=== PATIENT | female | born 1960 | race Caucasian/White ===

== ENCOUNTER 2022-08-27 01:00 | Day surgery (SDC) | payer BC, SELFPAY ==
[2022-08-10 11:04] VITALS: BMI 28.0
--- NOTE | 2022-08-24 12:23 | PM.HPGS ---
History of Present Illness History of Present Illness Consent: Risks, benefits, and alternatives have been discussed and questions answered. Patient agrees to proceed with procedure. Chief complaint: hx of colon polyps Narrative: Monalisa Healy is a 61 year old female With history of colon polyps. Review of Systems Review of Systems: All systems reviewed & are unremarkable except as noted in HPI and below PMFSH Past Medical History Medical History Atopic dermatitis Chronic back pain History of nephrolithotomy with removal of calculi Surgical History Surgical History H/O breast biopsy History of tonsillectomy and adenoidectomy History of tubal ligation S/P ureteral stent placement Family History Family History Other Family history of hypothyroidism Family history of malignant neoplasm of breast in first degree relative Social History Social History Smoking packs per day: 2 Smoking cigarettes per day: 40.0 Years smoked: 15 Smoking pack-years: 30.00 Smoking status: Former smoker Tobacco type: cigarettes Second hand tobacco smoke exposure: No Smoking end date: 11/04/85 Alcohol intake: current Drinks per week: 1 Substance use: never Substance use type: does not use Living arrangements: other Gender identity (if verbalized by the patient): Female Meds Home Medications and Allergies Home Medications Medication Instructions Recorded Confirmed Type cholecalciferol (vitamin D3) 50 50 mcg PO DAILY 11/28/20 08/27/22 History mcg (2,000 unit) capsule ibuprofen 200 mg tablet 800 mg PO BID PRN Pain 07/31/21 08/27/22 History lisinopril 20 0.5 tablet PO DAILY #90 tabs 11/06/21 08/27/22 Rx mg-hydrochlorothiazide 12.5 mg tablet levothyroxine 50 mcg tablet 50 mcg PO DAILY #90 tabs 12/25/21 08/27/22 Rx simvastatin 20 mg tablet 20 mg PO DAILY #90 tabs 02/01/22 08/27/22 Rx orphenadrine citrate 100 mg 100 mg PO Q12H #60 tabs 06/18/22 08/27/22 Rx tablet,extended release aspirin 81 mg tablet 81 mg PO DAILY 08/10/22 08/27/22 History cyanocobalamin (vitamin B-12) 500 500 mcg PO DAILY 08/10/22 08/27/22 History mcg tablet (Vitamin B-12) Allergies Allergy/AdvReac Type Severity Reaction Status Date / Time No Known Allergies Allergy Verified 08/27/22 06:22 Exam Const: General: alert Orientation/consciousness: patient oriented x3 Resp: Auscultation: clear to auscultation bilaterally Cardio: Rhythm: regular rhythm GI: GI Palp: Yes Soft to palpation and No Tenderness to palpation present (GI) Neuro: General: patient oriented x3 Assessment and Plan Assessment and plan (1) Colon cancer screening: Code(s): Z12.11 - Encounter for screening for malignant neoplasm of colon Status: Acute Assessment and Plan: Colonoscopy with possible biopsy or polypectomy or cautery or injection of substances.
[2022-08-27 06:23] VITALS: BP 141/83; PULSE 88; RESP 18; TEMP 36.4; O2SAT 100; BMI 27.3
[2022-08-27] MEDS: LACTATED RINGERS 1,000 ML 150 ML IV CONT (06:34)
--- NOTE | 2022-08-27 07:23 | WPDANESEPPF ---
Anes - Initial Pre Proc Eval Procedure: Operation Date: 08/27/22 07:30 Proposed Procedures p Screening Colonoscopy - Mian Florentino MD Date/Time: 08/27/22 07:23 Surgeon: Mian Florentino MD Pre Op Diagnosis: hx of colon polyps Patient Data Age: 61 Gender: F Height: 1.68 m Weight: 77 kg Last Vital Signs Temp 97.5 F L 08/27/22 06:23 Pulse 88 08/27/22 06:23 Resp 18 08/27/22 06:23 BP 141/83 H 08/27/22 06:23 Pulse Ox 100 08/27/22 06:23 O2 Del Method Room Air 08/27/22 06:23 Allergies Allergy/AdvReac Type Severity Reaction Status Date / Time No Known Allergies Allergy Verified 08/27/22 06:22 Home Medications Medication Instructions Recorded Confirmed Type cholecalciferol (vitamin D3) 50 50 mcg PO DAILY 11/28/20 08/27/22 History mcg (2,000 unit) capsule ibuprofen 200 mg tablet 800 mg PO BID PRN Pain 07/31/21 08/27/22 History lisinopril 20 0.5 tablet PO DAILY #90 tabs 11/06/21 08/27/22 Rx mg-hydrochlorothiazide 12.5 mg tablet levothyroxine 50 mcg tablet 50 mcg PO DAILY #90 tabs 12/25/21 08/27/22 Rx simvastatin 20 mg tablet 20 mg PO DAILY #90 tabs 02/01/22 08/27/22 Rx orphenadrine citrate 100 mg 100 mg PO Q12H #60 tabs 06/18/22 08/27/22 Rx tablet,extended release aspirin 81 mg tablet 81 mg PO DAILY 08/10/22 08/27/22 History cyanocobalamin (vitamin B-12) 500 500 mcg PO DAILY 08/10/22 08/27/22 History mcg tablet (Vitamin B-12) Patient hx anesthesia problems: none Family hx anesthesia problems: none Results Review: All pre-operative results and documents have been reviewed as part of the pre-operative evaluation. [facility] Past Medical History Medical History Atopic dermatitis Chronic back pain History of nephrolithotomy with removal of calculi Surgical History Surgical History H/O breast biopsy History of tonsillectomy and adenoidectomy History of tubal ligation S/P ureteral stent placement Family History Family History Other Family history of hypothyroidism Family history of malignant neoplasm of breast in first degree relative Social History Social History Smoking packs per day: 2 Smoking cigarettes per day: 40.0 Years smoked: 15 Smoking pack-years: 30.00 Smoking status: Former smoker Tobacco type: cigarettes Second hand tobacco smoke exposure: No Smoking end date: 11/04/85 Alcohol intake: current Drinks per week: 1 Substance use: never Substance use type: does not use Living arrangements: other Gender identity (if verbalized by the patient): Female Anes - Eval Final PreProcedure Day of Procedure 08/27/22 07:23 Patient weight: obese Heart: regular rate and rhythm Lungs: clear to auscultation Airway: Mallampati scale class II Neurological: alert and oriented Last oral intake: >/= 8 hours ASA classification: III Emergent: no Anesthetic plan: proceed Anesthesia type and monitoring: general GIVS and standard monitoring Results Review: All pre-operative results and documents have been reviewed as part of the pre-operative evaluation. Informed Consent: The patient's anesthetic plan and its attendant risks and benefits were discussed with the patient/family/POA. Questions were solicited and answers provided to the satisfaction of the patient/family/POA.
[2022-08-27 07:48] VITALS: BP 120/66; PULSE 71; RESP 18; O2SAT 98
[2022-08-27 07:58] VITALS: BP 120/70; PULSE 66; RESP 18; O2SAT 100
[2022-08-27 08:08] VITALS: BP 132/76; PULSE 60; RESP 16; O2SAT 97
== END 2022-08-27 08:17 | disposition home or self-care (01) ==
PROVIDERS: PCP Family Medicine; Visit Provider Internal Medicine Gastroenterology
PROC: 0DJD8ZZ Inspection of Lower Intestinal Tract, Via Natural or Artificial Opening Endoscopic (ICD-10-PCS; CPT 45378; principal; 2022-08-27 07:30)
DX: Z12.11 Encounter for screening for malignant neoplasm of colon (principal); K57.30 Diverticulosis of large intestine without perforation or abscess without bleeding; Z86.010 Personal history of colon polyps; Z87.891 Personal history of nicotine dependence
CPT/HCPCS: 45378; J2704; J7120

== ENCOUNTER 2023-01-28 12:12 | Outpatient (CLI) | payer BC, SELFPAY ==
--- NOTE | 2023-01-28 12:31 | ECG_ITS ---
Measurements Intervals [place] Rate: 68 P: 55 PA: 170 QRS: 10 QRSD: 85 T: 15 QT: 387 QTc: 412 Interpretive Statements SINUS RHYTHM EARLY PRECORDIAL R/S TRANSITION ST ABNORMALITY IN ANTEROLATERAL LEADS- CONSIDER ISCHEMIA ABNORMAL ECG NO PREVIOUS ECG AVAILABLE FOR COMPARISON Electronically Signed On 01-28-2023 12:57:21 CDT by Bijan Wrothy D.O.
== END 2023-01-28 12:13 | disposition home or self-care (01) ==
PROVIDERS: PCP Family Medicine; Visit Provider Physician Assistant Medical
DX: R00.2 Palpitations (principal)
CPT/HCPCS: 93005

== ENCOUNTER 2023-03-20 08:03 | Outpatient (CLI) | payer BC, SELFPAY ==
--- NOTE | ~2023-03-20 | NM_ITS ---
EXAMINATION: NM stress w perf spect multi DATE: 03/20/2023 10:27 INDICATION: Other forms of dyspnea. TECHNIQUE: Rest images were obtained following intravenous administration of 10.4 mCi Tc99m tetrofosm in (Myoview). The patient performed an exercise activity. At peak exercise, 33 mCi Tc99m tetrofosmin (Myoview) was administered intravenously, and stress images were obtained. Data was reconstructed int o short axis and horizontal and vertical long axis SPECT images. Gated SPECT images were also obtaine d. COMPARISON: None. FINDINGS: There is no definite reversible or fixed perfusion abnormality to suggest ischemia or infar ction. There is no segmental wall motion abnormality. Left ventricular ejection fraction measures > 70%. IMPRESSION: 1. No definite ischemia or infarct. 2. Normal left ventricular ejection fraction measuring >70%. Reviewed, dictated and finalized at location A.
--- NOTE | 2023-03-20 08:09 | ECHO_ITS ---
Patient Info Name: Monalisa Healy Age: 62 years : 1960 Gender: Female Ht: 66 in Wt: 172 lbs BSA: 1.92 m2 HR: 79 bpm BP: 123 / 80 mmHg Heart Rhythm: Sinus Rhythm Technical Quality: Fair Exam Date: 03/20/2023 8:13 AM Exam Location: [facility] Patient Status: Outpatient Admit Date: 03/20/2023 Staff Ordering Physician: Bijan Worthy DO Pediatric Hospitalist: Мария Judd RDCS Attending Provider: Bijan Worthy DO Referring Physician: Deacon CALDERON; Exam Type: CA echo doppler color flow Study Info Indications - vides, palpitations Complete two-dimensional, color flow and Doppler transthoracic echocardiogram is performed with contrast to opacify the left ventricle and to improve the deliniation of the left ventricle endocardial borders. Summary 1. Left ventricular chamber dimension is normal. 2. Ventricular septum is sigmoid shaped. No LVOT obstruction. 3. Left ventricular systolic function is normal, estimated at 65-70%. 4. The left ventricular diastolic function is grade I diastolic dysfunction. 5. E/e' 11 is mildly elevated. 6. There is mild aortic valve sclerosis. 7. There is trace mitral valve regurgitation. 8. There is trace tricuspid valve regurgitation. 9. No pulmonary hypertension, estimated pulmonary arterial systolic pressure is 28 mmHg. Left Ventricle E/e' 11 is mildly elevated. Ventricular septum is sigmoid shaped. No LVOT obstruction. Left ventricular chamber dimension is normal. Left ventricular systolic function is normal, estimated at 65-70%. The left ventricular diastolic function is grade I diastolic dysfunction. Right Ventricle Right ventricular systolic function is normal and with normal TAPSE 2.1 cm. Right ventricular chamber dimension is normal. Left Atria Left atrial chamber dimension is normal. Right Atria Right atrial chamber dimension is normal. Aortic Valve The aortic valve is trileaflet. There is mild aortic valve sclerosis. There is no aortic valve stenosis. There is no aortic valve regurgitation. Pulmonic Valve There is no pulmonic regurgitation. Mitral Valve There is no mitral valve stenosis. There is trace mitral valve regurgitation. Tricuspid Valve There is trace tricuspid valve regurgitation. No pulmonary hypertension, estimated pulmonary arterial systolic pressure is 28 mmHg. Pericardium/Pleural There is no pericardial effusion. Inferior Vena Cava Normal inferior vena cava with >50% collapse upon inspiration consistent with normal right atrial pressure, 5 mmHg. Aorta The aortic root size at the sinus of Valsalva is normal. Left Ventricular Outflow Tract Name Value Normal LVOT 2D LVOT Diameter 2.0 cm LVOT Doppler LVOT Peak Gradient 5 mmHg LVOT Mean Gradient 3 mmHg LVOT VTI 22 cm LVOT VTI/AV VTI Ratio 0.9 LVOT Stroke Volume 64 ml LVOT CO 5.1 l/min LVOT CI 2.7 l/min/m2 Pulmonic Valve Name Value Normal
--- NOTE | 2023-03-20 08:46 | EST_ITS ---
Patient Info Name: Monalisa Healy Age: 62 years : 1960 Gender: Female Ht: 66 in Wt: 172 lbs BSA: 1.92 m2 HR: 72 bpm BP: 139 / 80 mmHg Heart Rhythm: Sinus Rhythm Exam Date: 03/20/2023 9:18 AM Exam Location: [facility] Stress Patient Status: Outpatient Admit Date: 03/20/2023 Staff Ordering Physician: Bijan Worthy DO Attending Provider: Bijan Worthy DO Exercise Technologist: Мария Judd RDCS Exercise Physician: Bijan Worthy DO Exam Type: CA stress test treadmill w NM Study Info A nuclear stress test was performed. Summary 1. 1. Negative Mason exercise stress test for ischemic ST changes by ECG criteria. 2. 2. Reduced functional capacity, achieving 6.8 METs of workload. 3. 3. Appropriate HR response to exercise. 4. 4. Appropriate HR recovery at 1 minute post exercise. 5. 5. Nuclear scan to follow and will be reported separately. Please correlate with it. 6. 6. Patient informed of the above results. Protocol: Mason Stress ECG Details Stage: REST Duration (min): 3 min : 47 sec Speed (mph): 0.0 Grade (%): 0 HR (bpm): 74 SBP (mmHg): 139 DBP (mmHg): 80 METS: --- Stage: REST Duration (min): 4 min : 18 sec Speed (mph): 0.0 Grade (%): 0 HR (bpm): 71 SBP (mmHg): 139 DBP (mmHg): 80 METS: --- Stage: REST Duration (min): 5 min : 29 sec Speed (mph): 0.0 Grade (%): 0 HR (bpm): 73 SBP (mmHg): 139 DBP (mmHg): 80 METS: --- Stage: REST Duration (min): 15 min : 48 sec Speed (mph): 0.0 Grade (%): 0 HR (bpm): 87 SBP (mmHg): 139 DBP (mmHg): 80 METS: --- Stage: STAGE 1 Duration (min): 1 min : 0 sec Speed (mph): 1.7 Grade (%): 10 HR (bpm): 107 SBP (mmHg): 139 DBP (mmHg): 80 METS: --- Stage: STAGE 1 Duration (min): 2 min : 0 sec Speed (mph): 1.7 Grade (%): 10 HR (bpm): 122 SBP (mmHg): 139 DBP (mmHg): 80 METS: --- Stage: STAGE 1 Duration (min): 3 min : 0 sec Speed (mph): 1.7 Grade (%): 10 HR (bpm): 133 SBP (mmHg): 156 DBP (mmHg): 74 METS: --- Stage: STAGE 2 Duration (min): 1 min : 0 sec Speed (mph): 2.5 Grade (%): 12 HR (bpm): 141 SBP (mmHg): 157 DBP (mmHg): 73 METS: --- Stage: STAGE 2 Duration (min): 1 min : 18 sec Speed (mph): 2.5 Grade (%): 12 HR (bpm): 142 SBP (mmHg): 157 DBP (mmHg): 73 METS: --- Stage: RECOVERY Duration (min): 0 min : 41 sec Speed (mph): 0.0 Grade (%): 0 HR (bpm): 136 SBP (mmHg): 156 DBP (mmHg): 67 METS: --- Stage: RECOVERY Duration (min): 1 min : 41 sec Speed (mph): 0.0 Grade (%): 0 HR (bpm): 111 SBP (mmHg): 156 DBP (mmHg): 67 METS: --- Stage: RECOVERY Duration (min): 2 min : 41 sec Speed (mph): 0.0 Grade (%): 0 HR (bpm): 102 SBP (mmHg): 171 DBP (mmHg): 73 METS: --- Stage: RECOVERY Duration (min): 3 min : 41 sec Speed (mph): 0.0 Grade (%): 0 HR (bpm): 95 SBP (mmHg): 171 DBP (mmHg): 73 ME
== END 2023-03-20 08:04 | disposition home or self-care (01) ==
PROVIDERS: PCP Family Medicine; Visit Provider Internal Medicine Cardiovascular Disease
DX: R00.2 Palpitations (principal); R06.09 Other forms of dyspnea
CPT/HCPCS: 78452; 93017; 93306; A9502

== ENCOUNTER 2023-09-09 09:43 | Outpatient (CLI) | payer BC, SELFPAY ==
--- NOTE | 2023-09-25 11:02 | WPDHOMESLEEP ---
Sleep Study - Home Unattended Date of Study: 09/09/23 Ordering Provider: Bijan Worthy DO Interpreting Provider: Mag Simmons DO Home Sleep Study Type: Watch PAT Height: 1.68 m Weight: 77.111 kg Body Mass Index: 27.4 Neck Circumference (inches): 14 Anderson: 5 Reason for Sleep Study Snoring, paroxysmal atrial fibrillation Sleep History The patient is a 62-year-old female with paroxysmal atrial flutter, hypertension, hypothyroidism, dyslipidemia, eczema, chronic back pain and history of tobacco use that had a sleep study ordered by her estate planning paralegal for evaluation of sleep apnea.The patient denies awakening from sleep short of breath. She denies awakening at night with heartburn, belching or cough. She occasionally snores and is occasionally loud enough that others complain. She occasionally has trouble sleeping when she has a cold. She denies waking up gasping for air throughout the night. She denies having breathing problems at night observed by herself or others. She denies sweating excessively at night. She denies having heart palpitations or irregular heartbeats during the night. She denies falling asleep while driving. She denies sleep paralysis, cataplexy and hypnagogic / hypnopompic hallucinations. She occasionally has nightmares. She occasionally remembers her dreams. She occasionally has thoughts racing through her mind. She occasionally feels sad, depressed and anxious. She occasionally has muscular tension. She occasionally notices parts of her body jerk. She occasionally kicks during the night. She denies having crawling and aching feelings in her legs but occasionally has leg cramps during the night. She denies grinding her teeth during sleep and denies awakening with morning jaw pain. She is occasionally bothered by pain during the day and occasionally awakened by pain during the night. She occasionally wakes up feeling stiff in the morning. She rarely wakes up with sore or achy muscles. She goes to bed between 11 to 11:30 p.m. on both weekdays and weekends. It takes her 15 minutes to fall asleep. She wakes up 1-2 times throughout the night to urinate and is able to fall back asleep within a few minutes. She wakes up at 7:00 a.m. on both weekdays and weekends. She typically gets 5-6 hours of sleep per night. She does not stay in bed after waking up in the morning. She currently lives alone. She denies consuming any caffeinated beverages within 2 hours of bedtime. She denies engaging in physical exercise before bedtime. She will read on her phone and watch television before falling asleep. She will occasionally take naps in the afternoon or the evening and they are refreshing. She consumes 3 cups of coffee per day. She will have 1 alcoholic beverage occasionally. She denies recreational drug use. [facility] Past Medical History Medical History History of nephrolithotomy with removal of calculi Palpitations Rash Surgical History Surgical History H/O breast biopsy History of tonsillectomy and adenoidectomy History of tubal ligation S/P ureteral stent placement Family History Family History Other Family history of hypothyroidism Family history of malignant neoplasm of breast in first degree relative Social History Social History Smoking packs per day: 2 Smoking cigarettes per day: 40.0 Years smoked: 15 Smoking pack-years: 30.00 Smoking status: Former smoker Tobacco type: cigarettes Second hand tobacco smoke exposure: No Smoking end date: 11/04/85 Alcohol intake: current Alcohol use details: socially Substance use: never Substance use type: does not use Living arrangements: other Occupation/Education: occupation Gender identity (if verba
[2023-09-25 11:04] VITALS: BMI 27.4
== END 2023-09-10 10:19 | disposition home or self-care (01) ==
LOC: ANHCSM 09:44
PROVIDERS: PCP Family Medicine; Visit Provider Internal Medicine Cardiovascular Disease
DX: G47.10 Hypersomnia, unspecified (principal); R06.83 Snoring
CPT/HCPCS: 95800

== ENCOUNTER 2025-07-19 09:57 | Outpatient (CLI) | payer BC, SELFPAY ==
--- OUTSIDE RECORDS SUMMARY | 2025-07-19 11:31 | XMS_ITS | Clinical Summary ---
Author Organization [facility] Address [address] [place] [address] Care Team Providers Care [employer] Helper Name Role Phone Klaudia Vale MD Primary Care Provider [phone] Allergies No known active allergies Medications hydrocodone-terrell taminophen 5-325 MG tablet Take 1 tablet by mouth 2 (two) times daily. 01/29/2019 Active levothyroxine 50 MCG tablet Take 50 mcg by mouth. Active simvastatin 20 MG tablet 02/24/2019 Active triamcinolone 0.5 % cream 12/23/2018 Active MELOXICAM 7.5 MG tabletIndicatio ns:Foraminal stenosis of cervical region TAKE ONE TABLET BY MOUTH TWICE A DAY FOR 30 DAYS, DO NOT TAKE WITH NAPROXEN 60 tablet 07/27/2019 Active ORPHENADRINE ER 100 MG TABLET SR 12 HR 12 hr tabletIndicatio ns:Foraminal stenosis of cervical region TAKE ONE TABLET BY MOUTH TWICE A DAY FOR 30 DAYS 60 tablet 1 07/27/2019 Active lisinopril-hydr ochlorothiazide 20-12.5 MG tablet 08/11/2019 Active Active Problems Problem Noted Date Diagnosed Date Foraminal stenosis of cervical region 05/25/2019 Social History Tobacco Use Types Packs/Day Years Used Date Smoking Tobacco: Former Smokeless Tobacco: Never Comments Unknown Sex and Gender Information Value Date Recorded Sex Assigned at Not on file Legal Sex Female 3:34 PM CDT Gender Identity Not on file Sexual Orientation Not on file Last Filed Vital Signs Vital Sign Reading Time Taken Comments Blood Pressure 124/78 08/24/2019 10:33 AM CDT Pulse 88 08/24/2019 10:33 AM CDT Temperature - - Respiratory Rate - - Oxygen Saturation - - Inhaled Oxygen Concentration - - Weight 83.5 kg (184 lb) 08/24/2019 10:33 AM CDT Height 167.6 cm (5' 6) 08/24/2019 10:33 AM CDT Body Mass Index 29.7 08/24/2019 10:33 AM CDT Plan of Treatment Health Maintenance Due Date Last Done Comments Colorectal Cancer Screening Colonoscopy (10 Years) 1960 Hepatitis C 1976 DTaP, Tdap and Td Vaccines ( 1 - Tdap) 1977 Mammogram Screening 1998 Pneumococcal Vaccine: 50+ Ye ars (1 of 1 - PCV) 2008 Zoster Vaccines (1 of 2) 2008 Dexa Scan (General) 2023 COVID-19 Vaccine (1 - 2023-2 5 season) 2025 RSV Immunization or 60+ Years (1 - 1-dose 75+ series) 2033 Meningococcal B Vaccine Aged Out No l onger eligible based on patient's age to complete this topic Meningococcal Vaccine Aged Out No alejandro rafael eligible based on patient's age to complete this topic RSV Immunizations Under 20 Months Aged Out No longer eligible based on patient's age to complete this topic Insurance [employer] Care Teams [employer] Helper Relationship Specialty Start Date End Date Klaudia Vale MD PCP - General FAMILY PRACTICE 05/25/19
--- OUTSIDE RECORDS SUMMARY | 2025-07-19 11:31 | XMS_ITS | Clinical Summary ---
Author Organization [facility] [employer] Address [address] [place] [address] Care Team Providers Care Reforestation Worker Name Role Phone Carlos A Mena MD Unavailable [phone] Melina Zarate MD Primary Care Provider [phone] Source Comments [facility] [employer],non-owned Affiliates and Associated Physician Practices is amultiple site organization consisting of ambulatory clinics and hospital sitesin [place], [place], [place] and [place]. This disclosure is being madepursuant to the Care Everywhere program and may not contain all information available regarding this patient. Last updated 18.[facility] [employer] Allergies No known active allergies Medications * Be aware that medications may not be up to date on this document. Alwaysverify current medications with the patient. simvastatin (ZOCOR) 20 MG tablet Take 1 (one) tablet by mouth at bedtime Active levothyroxine (SYNTHROID) 50 MCG tablet Take 1 (one) tablet by mouth daily before breakfast Active lisinopril-hydr oCHLOROthiazide (PRINZIDE; ZESTORETIC) 20-12.5 MG tablet 9 Active clobetasol (Temovate) 0.05 % cream PLEASE SEE ATTACHED FOR DETAILED DIRECTIONS 4 Active metoprolol succinate XL 24hr (Toprol XL) 25 MG tablet Take 1 (one) tablet by mouth once daily 4 Active flecainide (Tambocor) 100 MG tablet Active Xarelto 20 MG tablet Take 1 (one) tablet by mouth daily with food 4 Active cyclobenzaprine (Flexeril) 10 MG tablet Take 1 (one) tablet by mouth 3 times daily Active Active Problems Problem Noted Date Diagnosed Date Depression Menopause Lichen sclerosus et atrophicus of the vulva Cervical spondylosis with myelopathy and radicul opathy Atrial fibrillation Encounters Date Type Department Care Team Description 05/10/2025 11:00 AM CDT Office Visit [facility] - ASSISTANT PROFESSOR NURSE EDUCATION [address] [place] [address], [address] [place] [address] Carlso A Mena MD Menopause (Primary Dx); Lichen sclerosus et atrophicus of the vulva; Pap smear for cervical cancer screening; Breast cancer screening by mammogram 05/10/2025 Travel from Last 3 Months Social History Tobacco Use Types Packs/Day Years Used Date Smoking Tobacco: Former Smokeless Tobacco: Never Tobacco Cessation:Counseling Given: Not Answered Alcohol Use Standard Drinks/Week Comments Not Currently 0 (1 standard drink = 0.6 oz pur e alcohol) PHQ-2 Answer Date Recorded Patient Health Questionnaire-2 Score 0 05/09/2025 Comments No Sex and Gender Information Value Date Recorded Sex Assigned at Female 05/03/2024 7:55 PM CDT Legal Sex Female 9:44 AM INTERIOR DESIGN ASSISTANT Gender Identity Female 05/03/2024 7:55 PM CDT Sexual Orientation Straight 05/03/2024 7: 55 PM CDT Last Filed Vital Signs Vital Sign Reading Time Taken Comments Blood Pressure 118/76 05/10/2025 10:55 AM CDT Pulse - - Temperature 36.3 C (97.3 F) 04/11/2020 11:27 AM CDT Respiratory Rate - - Oxygen Saturation - - Inhaled Oxygen Concentration - - Weight 83 kg (183 lb) 05/10/2025 10:55 AM CDT Height 167.6 cm (5' 6) 05/10/2025 10:55 AM CDT Body Mass Index 29.54 05/10/2025 10:55 AM CDT Plan of Treatment Upcoming Encounters Date Type Department Care Team (Late st Contact Info) Description 05/16/2026 11:00 AM CDT Office Visit [facility] - ASSISTANT PROFESSOR NURSE EDUCATION [address] [place] [address], [address] [place] [id number] Carlos A Mena MD [address] [facility] [address] [place] [address] Health Maintenance Due Date Last Done Comments BONE DENSITY TESTING 1960 COLOGUARD (AGES 45-75) - COLON CA SCREENING 1960 COLON MONITORING 1960 COLONOSCOPY - COLON CA SCREENING 1960 CT COLONOGRAPHY - COLON CA SCREENING 1960 Colorectal Cancer Screening 1960 FIT - COLON CA SCREENING 1958 FLEX SIG - COLON CA SCREENING 1960 HEPATITIS C SCREENING 10/07/1976 DTAP/TDAP/TD VACCINES (1 - Tdap) 1977 PNEUMOCOCCAL VACCINE 50+ (1 of 1 - PCV) 2008 ZOSTER VACCINE (1 of 2) 2008 SCREENING FOR DIABETES 05/10/2025 COVID-19 VACCINE ( season) 2025 11/10/2021, 04/10/2021, 03/20/2021 INFLUENZA VACCINE (#1) 2025 , 07/13/2020, 07/28/2019, Additional history exists MAMMOGRAM 05/31/2027 05/31/2025, 05/05, 05/25/2024, Additional history exists Respiratory Syncytial Virus (RSV) Vaccine Pt: or over 60 yrs (1 - 1-dose 75+ series) 2033 DEPRESSION SCREENING Completed 05/10/2025 HEPATITIS B VACCINE Aged Out No longe r eligible based on patient's age to complete this topic HIB VACCINE Aged Out No longer eligi ble based on patient's age to complete this topic HPV VACCINE Aged Out No longer eligi ble based on patient's age to complete this topic MENINGOCOCCAL (Group B) VACCINE SHARED DECISION-MAKING Aged Out No longer eligible based on patient's age to complete this topic MENINGOCOCCAL GROUPS A/C/Y/W VACCINE Aged Out No longer eligible based on patient's age to complete this topic Procedures Procedure Name Priority Date/Time Associated Diagnosis Comments MAMMOGRAM 05/31/2025 PAP IG LB RFLX HPV APTIMA ASCU Routine 05/10/2025 11:13 AM CDT Pap smear for cervical cancer screening from Last 3 Months Results * MAMMOGRAM (05/31/2025) Anatomical Region Laterality Modality Other 05/31/2025 Narrative 05/31/2025 Ordered by an unspecified provider. us Scanned Document SCANNING ONLY Final Result * PAP IG LB RFLX HPV APTIMA ASCU (05/10/2025 11:13 AM CDT) Diagnosis Comment [facility] ACCOUNT BILL Comment: NEGATIVE FOR INTRAEPITHELIAL LESION OR MALIGNANCY. CELLULAR CHANGES ASSOCIATED WITH ATROPHY ARE PRESENT. Specimen Adequacy Comment [facility] ACCOUNT BILL Comment: Satisfactory for evaluation. Endocervical component may not be distinguished in cases of atrophy. Clinician Provided ICD10 Comment [facility] ACCOUNT BILL Comment:Z12.4 Performed by Comment [facility] ACCOUNT BILL Comment:Ryann Valencia, Cyto logist (ASCP) Comment . [facility] ACCOUNT BILL Note Comment [facility] ACCOUNT BILL Comment: The Pap smear is a screening test designed to aid in the detection of premalignant and malignant conditions of the uterine cervix. It is not a diagnostic procedure and should not be used as the sole means of detecting cervical cancer. Both false-positive and false-negative reports do occur. IGLBP CPT Code Automation Comment [facility] ACCOUNT BILL Comment: This liquid based ThinPrep(R) pap test was screened with the use of an image guided system. Note Comment [facility] ACCOUNT BILL Comment: The HPV DNA reflex criteria were not met with this specimen result therefore, no HPV testing was performed. Pathology/Cytolog y PART OF UTERINE CERVIX / Unknown 05/10/2025 11:13 AM CDT 05/10/2025 Comment:Cervix Release to pa t Narrative [facility] ACCOUNT BILL - 05/12/2025 3:10 PM CDT Performed at: [address] [place] [address] [facility] [address] [place] [address], [place], [place] [id number] Biomedical Engineering Professor: Enoc Danielle MD, Phone: [phone] Performed at: 02 - [facility] [address] [place] [id number] Biomedical Engineering Professor: Janice Chacon MD, Phone: [phone] Specimen Comment: [id number] Specimen Comment: No. of containers..01 ThinPrep Vial Carlos A Mena MD LAB - PATHOLOGY/CYTOLOGY ORDERA BLES Final Result [facility] ACCOUNT BILL [id number] [place] [address] from Last [address] [address] ANTH Care Teams Reforestation Worker Relationship Specialty Start Date End Date Melina Zarate MD [address] [place] [address] PCP - General Family Medicine 04/23/22 Carlos A Mena MD [address] [place] [address] Gaming Director Obstetrics and Gynecology 02/14/17
--- OUTSIDE RECORDS SUMMARY | 2025-07-19 11:31 | XMS_ITS | Clinical Summary ---
Author Organization [facility] Virtual Care Address Formerly [facility] [place] [address] Phone Care Team Providers Care Machine I Cutter Name Role Phone Delta Antonio Primary Care Provider [phone] Allergies No known active allergies Medications cyclobenzaprine (FLEXERIL) 10 mg tablet TAKE 1 TABLET BY MOUTH THREE TIMES A DAY NEEDED FOR MUSCLE SPASM 4 Active flecainide (TAMBOCOR) 100 mg tabletIndications :Paroxysmal Atrial Fibrillation Take 0.5 tablets (50 mg total) by mouth every 12 (twelve) hours 4 Active levothyroxine (SYNTHROID) 50 mcg tablet Take 1 tablet (50 mcg total) by mouth daily 4 Active lisinopril-hydroC HLOROthiazide (ZESTORETIC) 20-12.5 mg per tablet Take 0.5 tablets by mouth daily 4 Active metoprolol XL (TOPROL-XL) 25 mg extended release tablet Take 1 tablet (25 mg total) by mouth daily 4 Active Xarelto 20 mg tablet 20 MG ORALLY EVERY EVENING MUST ADMINISTER WITH EVENING MEAL 4 Active simvastatin (ZOCOR) 20 mg tablet Take 1 tablet (20 mg total) by mouth daily 4 Active Active Problems Problem Noted Date Diagnosed Date Paroxysmal atrial fibrillation 04/05/2025 Snoring 12/28/2024 S/P ablation of atrial fibrillation 12/28/2024 Anticoagulation management encounter 12/28/2024 Cardiac arrhythmia 08/20/2024 Assessment & Plan (08/20/2024 5:19 PM CDT): The patient has symptomatic paroxysmal atrial fibrillation that has been resistant to antiarrhythmic drug therapy with flecainide. As an alternative, we discussed catheter ablation. We discussed the rationale for atrial fibrillation ablation, including the steps involved in ablation. I detailed the risks of the procedure, including vascular injury/hematoma, myocardial injury/perforation, stroke, myocardial infarction, pulmonary vein stenosis, thermal esophageal injury, phrenic nerve injury and . I estimated a 70-80% chance of freedom from long-term atrial arrhythmia, and the patient understands that occasionally a second procedure is necessary. It will be my intention to discontinue antiarrhythmic drug therapy following ablation. However, as long as the patient continues on flecainide, an ECG should be performed at least every 6 months to monitor for toxicity. The patient has a [id number] score of 3. I have therefore recommended continued anticoagulation for thromboprophylaxis. My office will make the appropriate arrangements. From: November, Justa LS, Jamar JS, Dany H, Beto ESTRELLA, Maggie JE, Tim FLEX, Douglas PT, Jaiden ELAM, Field KENNEDY, Sedrick KT, Filiberto RL, Chet WG, Stacy PJ, Leatha CM, Fabiana CW. 2014 AHA/ACC/HRS guideline for the management of patients with atrial fibrillation: a report of the [place] College [employer]/[place] Heart Association Task Force on Practice Guidelines and the Heart Rhythm Society. J Am Lara Cardiol 2014. 6.3. AF Catheter Ablation to Maintain Sinus Rhythm: Recommendations Class I AF catheter ablation is useful for symptomatic paroxysmal AF refractory or intolerant to at least 1 class I or III antiarrhythmic medication when a rhythm control strategy is desired (356, [phone]). (Level of Evidence: A) Encounters Date Type Department Care Team Description 05/20/2025 10:30 AM CDT Procedure visit [facility] [address] [address] Encounter for monitoring flecainide therapy from Last 3 Months Surgical History Surgery Date Site/Laterality Comments OTHER SURGICAL HISTORY breast biopsy x3 benign Medical History Medical History Date Comments Hx Other Medical HLP Hx Other Medical depressed mood, insomnia Hx Other Medical 2013 Menopause Adiposity obesity PONV (postoperative nausea and vomiting) Family History Medical History Relation Name Comments Hypertension Father 2 Hypertension; Heart attack Mother 2 Myocardial Infa rction; Relation Name Status Comments Father 1 Alive Father 2 Mother 1 Alive Mother 2 Social History Tobacco Use Types Packs/Day Years Used Date Smoking Tobacco: Former Cigarettes Q uit: 11/04/1986 Tobacco Cessation:Counseling Given: Not Answered Alcohol Use Standard Drinks/Week Comments Yes 0 (1 standard drink = 0.6 oz pur e alcohol) AUDIT-C Answer Date Recorded Q1: How often do you have a drink containing alc ohol? Monthly or less 09/23/2024 Q2: How many drinks containi ng alcohol do you have on a typical day when you are drinking? 1 or 2 09/23/2024 Q3: How often do you have si x or more drinks on one occasion? Never 09/23/2024 Personal Safety Answer Date Recorded Have you ever been in or are you currently in a harmful physical or emotional relationship or is someone making you feel afraid or unsafe? 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 Gender Identity Not on file Sexual Orientation Not on file Obstetrics History Last Filed Vital Signs Vital Sign Reading Time Taken Comments Blood Pressure 120/74 04/05/2025 1:23 PM CDT Pulse 58 05/20/2025 10:12 AM CDT Temperature 36.9 C (98.4 F) 09/23/2024 2:09 PM VETERINARY SCIENCE TEACHER Respiratory Rate 31 09/23/2024 5:00 PM VETERINARY SCIENCE TEACHER Oxygen Saturation 95% 10/07/2024 2:45 PM VETERINARY SCIENCE TEACHER Inhaled Oxygen Concentration - - Weight 84.8 kg (187 lb) 05/20/2025 10:12 AM CDT Height 167.6 cm (5' 6) 05/20/2025 10:12 AM CDT Body Mass Index 30.18 05/20/2025 10:12 AM CDT Plan of Treatment Health Maintenance Due Date Last Done Comments Colon Cancer Screening-Colonoscopy 1960 Depression Screening 1960 Hepatitis C Screening 1960 Osteoporosis Screening-Bone Density Scan 1958 Hepatitis B Screening 1976 Zoster Vaccine (2 of 3) 12/12/2014 10/17/2014 Well Visit 65+ 2023 Breast Cancer Screening-Mammogram 05/25/2025 05/25/2024, 05/25/2024, 05/20/2023, Additional history exists Covid-19 Vaccine (4 - 2024-2 6 season) 2025 11/10/2021, 04/10/2021, 03/20/2021 Influenza Vaccine (#1) 2025 , 07/23/2023, 07/13/2022, Additional history exists Fall Risk Assessment 09/23/2025 09/23/2024 DTaP/Tdap/Td Vaccine (2 - Td or Tdap) 07/24/2026 07/24/2016 Pneumococcal vaccine 65+ Completed 07/29/2024 Medical Devices Implanted Type Area Leasing Agent Device Identifier Shelf Expiration Date Model / Serial / Lot [employer] Vascade Mvp 6-12fr Venous Closure [id number] - [id number] - [id number] Implanted:Qty: 1 on 09/23/2024 by Jacob Vargas MD at [facility] [employer] 04/08/2026 [id number] / [id number] / [id number] [employer] Vascade Mvp 6-12fr Venous Closure [id number] - [id number] - [id number] Implanted:Qty: 1 on 09/23/2024 by Jacob Vargas MD at [facility] [employer] 04/01/2026 800-612C-1 [id number] / [id number] / [id number] [employer] Device Vascular Closure Femoral Artery Bioabsorbable Dual Method Vascade 6-7fr Collagen [id number] - [id number] - [id number] Implanted:Qty: 1 on 09/23/2024 by Jacob Vargas MD at [facility] [employer] 05/07/2026 [id number] / [id number] / [id number] [employer] Device Vascular Closure Vascade Mvp Xl 10-12fr Venous Strl [id number] - [id number] - [id number] Implanted:Qty: 1 on 09/23/2024 by Jacob Vargas MD at [facility] [employer] 06/15/2026 [id number] / [id number] / [id number] Procedures Procedure Name Priority Date/Time Associated Diagnosis Comments ECG 12-LEAD Routine 05/20/2025 10:55 AM CDT Encounter for monitoring flecainide therapy from Last 3 Months Results * ECG 12 lead (05/20/2025 10:55 AM CDT) Mariia Solitario NP ECG ORDERABLES Final Resu lt CONS SCIMAGE from Last [address] [place] [address] [facility] [employer] CHOICE MEDICARE Care Teams Machine I Cutter Relationship Specialty Start Date End Date Delta Antonio [address] [place] [address] PCP - General 06/13/12
--- OUTSIDE RECORDS SUMMARY | 2025-07-19 11:31 | XMS_ITS | Clinical Summary ---
Author Organization [facility] Address [address] [place] [address] Care Team Providers Care Sports Development Officer Name Role Phone Unavailable Primary Care Provider Unavailabl e Encounters Date Type Department Care Team Description 07/13/2025 External Device Data STL ABSTRACTION Provider, Abstract 06/09/2025 External Device Data STL ABSTRACTION Provider, Abstract 06/08/2025 External Device Data STL ABSTRACTION Provider, Abstract 05/31/2025 10:37 AM CDT - 05/31/2025 11:59 PM CDT Hospital Encounter [facility] [address] [place] [address] Carlos A Mena MD Discharge Disposition: Home or Self Care 05/19/2025 External Device Data STL ABSTRACTION Provider, Abstract 05/19/2025 External Device Data STL ABSTRACTION Provider, Abstract 05/18/2025 External Device Data STL ABSTRACTION Provider, Abstract 04/19/2025 Transcribe Orders Central Test Scheduling [address] [place] [phone] Carlos A Mena MD Visit for screening mammogram (Primary Dx) from Last 3 Months Social History Tobacco Use Types Packs/Day Years Used Date Smoking Tobacco: Never Assessed Comments No Sex and Gender Information Value Date Recorded Sex Assigned at Not on file Legal Sex Female 6:54 PM ORE CHARGER Gender Identity Not on file Sexual Orientation Not on file Plan of Treatment Health Maintenance Due Date Last Done Comments Pre-Diabetes and Diabetes Screening 1960 DTAP/TDAP/TD VACCINES (1 - Tdap) 1977 COLORECTAL SCREENING 2003 Colorectal Cancer Screening 2003 FIT-DNA Q 3 years 2003 FIT/FOBT Q 1 year 2003 Flex Sig/CT Colonography Q 5 years 2003 PNEUMOCOCCAL VACCINE 50+ YEA RS (1 of 1 - PCV) 2008 ZOSTER VACCINE (1 of 2) 2008 OSTEOPOROSIS SCREENING 2023 INFLUENZA VACCINE (#1) 2025 BREAST CANCER SCREENING 05/31/2026 05/31/20 25, 05/25/2024, 05/25/2024, Additional history exists RSV VACCINE (60+ or ) (1 - 1-dose 75+ series) 2033 Procedures Procedure Name Priority Date/Time Associated Diagnosis Comments MAMMO 3D CHYNA SCREEN BILAT W OR WO CAD Routine 05/31/2025 10:45 AM CDT Visit for screening mammogram from Last 3 Months Results * MAMMO 3D CHYNA SCREEN BILAT W OR WO CAD (05/31/2025 10:45 AM CDT) Anatomical Region Laterality Modality Breast Bilateral Mammography 05/31/2025 10:4 7 AM CDT Impressions 05/31/2025 10:59 AM CDT IMPRESSION: NO MAMMOGRAPHIC EVIDENCE OF MALIGNANCY. OVERALL FINAL ASSESSMENT: BI-RADS CATEGORY 2: Benign findings. ROUTINE SCREENING MAMMOGRAPHY IS RECOMMENDED IN 12 MONTHS. A normal letter will be sent to patient. Narrative 05/31/2025 10:59 AM CDT EXAM: MAMMO 3D CHYNA SCREEN BILAT W OR WO CAD STUDY DATE: 05/31/2025 10:45 AM CLINICAL INDICATION: 64 years old female presents for routine screening mammography. COMPARISON: Prior mammograms, the most recent dated 05/25/2024 PROCEDURE: CC and MLO digital mammographic views of the bilateral breasts are obtained. Computer Aided Detection (CAD) was utilized. Tomosynthesis was done with all views. FINDINGS: Breast Density: Scattered fibroglandular densities. Right breast: There is stable nodularity in the right breast. There are no spiculated masses, suspicious microcalcifications or areas of architectural distortion in the right breast. Left breast: There is stable scattered subcentimeter nodularity in the left breast. There are no spiculated masses, suspicious microcalcifications or areas of architectural distortion in the left breast. Carlos A Mena MD MAMMO ORDERABLES Final Result from Last 3 Months Insurance [facility] [employer] [facility] [employer]
--- NOTE | 2025-07-28 19:03 | WPDSLEEPSTUD ---
Sleep Study Date of Study: 07/19/25 Ordering Provider: Mag Simmons DO Interpreting Physician: Quin Rhoades MD Sleep Study Type: Split Polysomnogram Height: 1.68 m Weight: 83.915 kg Body Mass Index: 29.8 Neck Circumference (inches): 15 [place]: 5 Reason for Sleep Study * 09/09/2023, [facility] home sleep test negative for obstructive sleep apnea, AHI 2.7 with desaturation to 90% however respiratory disturbance index, RDI elevated at 13.7, suggestive of more sleep disordered breathing than HST could detect. Since the prior sleep study, she developed atrial fibrillation and had an ablation. She returns for a split night study. 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 She never awakens from sleep feeling short of breath. She does not awaken at night with heartburn, belching or coughing. She occasionally snores and occasionally this is loud enough that others complain. She occasionally has difficulty sleeping when she has a cold. She does not wake up gasping for breath at night, does not have breathing problems at night observed by others or sweat excessively at night. She rarely notices her heart pounding or beating irregularly at night. She occasionally falls asleep during the day, takes naps. She does not fall asleep involuntarily or while driving. She does not have loss of muscle tone with strong emotion. She does not have daytime difficulties due to excessive sleepiness. She does not feel paralyzed on waking or falling asleep. She occasionally has vivid dreamlike scenes upon awakening or falling asleep. She does not feel afraid to go to sleep. She rarely has nightmares. She occasionally remembers her dreams. She occasionally has racing thoughts. She occasionally feels sad or depressed. She occasionally has anxiety. She occasionally notices parts of her body jerking and occasionally kicks at night. She does not have crawling or aching feelings in her legs. She occasionally has a cramping in her legs at night, a JULIANNE worse. She does not have morning jaw pain nor does she grind her teeth at night. She occasionally is bothered by pain during the day, occasionally awakened by pain at night. Occasionally wakes up feeling stiff in the morning with sore achy muscles. She does not wake up with pain in the neck and spine. Normal bedtime is between 11:00 p.m. and 12 midnight, falling asleep within a few minutes, waking once at night to go to the bathroom, returning to sleep within a few minutes. Her wake up time depends on what time she goes to work. She may wake anywhere between 5:00 a.m. and 7:00 a.m.. She works Saturdays and Sundays, has two non-consecutive days off during the week. On days off, bedtime is also between 11:00 p.m. and 12:00 p.m. She estimates getting between 5 and 6 hours of sleep most nights. on days off she may take a nap. A short nap lasting 10-15 minutes may be refreshing. She feels better in the morning or afternoon compared to evenings. Habits: Tobacco : former smoker Caffeine : Three cups of coffee in the morning Alcohol : none Recreational substances : none PMFSH Past Medical History Medical History (Updated 07/28/25 @ 21:35 by Quin Rhoades MD) DDD (degenerative disc disease), lumbar Hyperlipidemia Paroxysmal atrial flutter Primary hypertension Palpitations Rash History of nephrolithotomy with removal of calculi Surgical History Surgical History H/O prior ablation treatment S/P ureteral stent placement History of tonsillectomy and adenoidectomy History of tubal ligation H/O breast biopsy Family History Family History Other Family history of hypothyroidism Family history of malignant neoplasm of breast in first degree relative Social History Social History (Updated 06/14/25 @ 09:50 by Darya Fitch MA) Smoking packs per day: 2 Smoking cigarettes per day: 40.0 Years smoked: 15 Smoking pack-years: 30.00 Smoking status: Former smoker Tobacco type: cigarettes Second hand tobacco smoke exposure: No Smoking end date: 11/04/85 Alcohol intake: current Alcohol use details: socially Substance use: never Substance use type: does not use Do You Feel Safe in your Home?: Yes Lack of Transportation: No Lack of Food: Never True Current Housing: Decline to Answer Concerned About Future Housing: Decline to Answer Difficulty Paying Gas/Electric Bills: Decline to Answer Difficulty Paying for Meds: Decline to Answer Currently Unemployed: Decline to Answer Education: Decline to Answer Difficulty w/ Childcare or Family Care: Decline to Answer Living arrangements: other Occupation/Education: occupation Gender identity (if verbalized by the patient): Female Medications Home Medications ?Medication ?Instructions ?Recorded ?Confirmed ?Type cholecalciferol (vitamin D3) 50 50 mcg PO DAILY 11/28/20 06/03/25 History mcg (2,000 unit) capsule ibuprofen 200 mg tablet 800 mg PO BID PRN Pain 07/31/21 06/03/25 History cyanocobalamin (vitamin B-12) 500 500 mcg PO DAILY 08/10/22 06/03/25 History mcg tablet (Vitamin B-12) lisinopril 20 0.5 tablet PO DAILY #90 tabs 07/29/24 06/03/25 Rx mg-hydrochlorothiazide 12.5 mg tablet levothyroxine 50 mcg tablet 50 mcg PO DAILY #90 tabs 12/18/24 06/03/25 Rx rivaroxaban 20 mg tablet (Xarelto) 20 mg PO QPM #30 tabs 12/18/24 06/03/25 Rx simvastatin 20 mg tablet 20 mg PO DAILY #90 tabs 01/25/25 06/03/25 Rx metoprolol succinate 25 mg See Rx Instructions .Route 04/20/25 06/03/25 Rx tablet,extended release 24 hr .COMPLEX #90 tabs flecainide 100 mg tablet 100 mg PO Q12H #60 tabs 06/14/25 06/14/25 Rx eszopiclone 2 mg tablet (Lunesta) 2 mg PO QHS #1 tablet 07/19/25 Rx cyclobenzaprine 10 mg tablet 10 mg PO TID PRN muscle spasm #90 07/23/25 Rx tabs Sleep Procedure A split night polysomnogram using the [employer] multi-channel system recorded the standard physiologic parameters including EEG, EOG, submentalis EMG, anterior tibialis EMG, EKG, body position, nasal and oral airflow using nasal pressure sensor and thermistor. Respiratory parameters of chest and abdominal movements were recorded with Respiratory Inductance Plethysmography belts. Oxygen saturation was recorded by pulse oximetry. Video monitoring was also performed. Sleep stages, periodic limb movements, and EEG arousals were scored in 30 second epochs according to the criteria of the AASM Scoring Manual. The Apnea-Hypopnea Index was calculated using CMS guidelines for definition of hypopnea while scoring respiratory events. She self-administered Lunesta 2 mg at the beginning of the study. After the baseline portion the patient met criteria for a titration with an AHI of 44.8 and desaturation to 89%. She used a small ResMed AirTouch F20 fullface mask with heated humidity, initial CPAP pressure was 5 cm titrated in 1 cm increments up to a maximum of CPAP 9 cm. At CPAP 9 cm, The patient spent 53.5 minutes in bed, 7 minute awake, 25.5 minutes in non-REM and 21 minute in REM. Sleep efficiency was 86.9%, residual AHI was 0 and the lowest saturation was 94%. Supine REM occurred at this pressure. Sleep Architecture During the diagnostic portion of the study, the total recording time was 191.7 minutes. The total sleep time was 132.5 minutes. Sleep latency was 21.1 minutes. REM latency was - minutes. Sleep Efficiency was 69.1%. The patient had 19 awakenings for an awakening index of 8.6. Wake after sleep onset time was 38.0 minutes. The patient spent 11.0 minutes, 8.3% of total sleep time in Stage N1. The patient spent 76.0 minutes, 57.4% in Stage N2. The patient spent 45.5 minutes, 34.3% in Stage N3. The patient spent no time in Stage REM sleep. At 12:43:48 AM the patient was placed on PAP treatment and was titrated at pressures ranging from CPAP 5 cm to 9 cm. During the treatment portion of the study, the total recording time was 296.9 minutes. The total sleep time was 239.0 minutes. Sleep latency was 18.5 minutes. REM latency was 70.5 minutes. Sleep Efficiency was 80.5%. Wake after Sleep Onset time was 39.0 minutes. The patient spent 21.5 minutes, 9.0% of total sleep time in Stage N1. The patient spent 132.5 minutes, 55.4% in Stage N2. The patient spent 47.0 minutes, 19.7% in Stage N3. The patient spent 38.0 minutes, 15.9% in Stage REM. Respiratory Analysis During the diagnostic portion of the study, the patient had 96 hypopneas, no obstructive apneas, no mixed apneas, and 3 central apneas for an overall Apnea Hypopnea Index of 44.8 events per hour. The REM Apnea Hypopnea Index was 0 as there was no REM on the baseline. The NREM Apnea Hypopnea Index was 44.8. The patient had a Central Apnea Hypopnea Index of 1.4. There were no Respiratory Effort Related Arousals.The Respiratory Disturbance Index is 54.8 events per hour. There was no evidence of Abdon-Alas Respirations. During the treatment portion of the study, the patient had 5 hypopneas, no obstructive apneas, 2 mixed apneas, and 3 central apneas for an overall Apnea Hypopnea Index of 2.5 events per hour. The REM Apnea Hypopnea Index was 1.6. The NREM Apnea Hypopnea Index was 2.7. The patient had a Central Apnea Hypopnea Index of 0.8. There were no Respiratory Effort Related Arousals. The Respiratory Disturbance Index is 3.8 events per hour. There was no evidence of Abdon-Alas Respirations. Arousals During the diagnostic portion of the study, there were a total of 126 arousals for an arousal index of 57.1. There were 60 respiratory arousals for an index of 27.2. There were 23 periodic limb movement arousals for an index of 10.4. There were 14 isolated limb movement arousals for an index of 6.3. There were 14 spontaneous arousals for an index of 6.3. During the treatment portion of the study, there were a total of 87 arousals for an index of 21.8. There were 6 respiratory arousals for an index of 1.5. There were 31 periodic limb movement arousals for an index of 7.8. There were 34 isolated limb movement arousals for an index of 8.5. There were 7 spontaneous arousals for an index of 1.8. Periodic Limb Movements During the diagnostic portion of the study, the patient had 18 isolated limb movements with an index of 8.2. The patient had 43 periodic limb movements with an index of 19.5. The patient had a total of 61 limb movements with a total limb movement index of 27.6. During the treatment portion of the study, the patient had 47 isolated limb movements with an index of 11.8. The patient had 127 periodic limb movements with an index of 31.9. The patient had a total of 174 limb movements with a total limb movement index of 43.7. Oximetry Data During the diagnostic portion of the study, the patient had an average oxygen saturation of 96% in wake with a minimum oxygen saturation of 92%and a maximum oxygen saturation of 99%. The patient had an average oxygen saturation of 94.3% in sleep with a minimum oxygen saturation of 89% and a maximum oxygen saturation of 99%. The patient had 122 oxygen desaturations resulting in an Oxygen Desaturation Index of 55.2. The patient spent no time with an oxygen saturation less than 88%. During the treatment portion of the study, the patient had an average oxygen saturation of 97.6% in wake with a minimum oxygen saturation of 90% and a maximum oxygen saturation of 100%. The patient had an average oxygen saturation of 96.4% in sleep with a minimum oxygen saturation of 92% and a maximum oxygen saturation of 100%. The patient had 13 oxygen desaturations resulting in an Oxygen Desaturation Index of 3.3. The patient spent no time with an oxygen saturation less than 88%. Snoring Profile During the diagnostic portion, snoring was moderate to loud. At the optimal pressure, snoring was eliminated. Cardiac Profile During the diagnostic portion of the study, the EKG showed normal sinus rhythm. The average pulse rate was 71 bpm. The minimum pulse rate was 64 bpm. The maximum pulse rate was 82 bpm. No arrhythmias noted. During the treatment portion of the study, the EKG showed normal sinus rhythm. The average pulse rate was 66.9 bpm. The minimum pulse rate was 53 bpm. The maximum pulse rate was 79 bpm. No arrhythmias noted. EEG Profile Unremarkable, no evidence of seizures. Assessment and Plan Assessment and Plan (1) Obstructive sleep apnea: Code(s): G47.33 - Obstructive sleep apnea (adult) (pediatric) Status: Acute Assessment and Plan: This split night sleep study on 07/19/2025 shows severe obstructive sleep apnea, the apnea-hypopnea index is 44.8 with desaturation 89% and moderate to loud snoring, successfully treated using a small ResMed AirTouch F20 fullface mask with heated humidity. At CPAP 9 cm, The patient spent 53.5 minutes in bed, 7 minute awake, 25.5 minutes in non-REM and 21 minute in REM. Sleep efficiency was 86.9%, residual AHI was 0 and the lowest saturation was 94%. Supine REM occurred at this pressure. The patient should be prescribed this ResMed equipment as well as tubing, filters and reservoir. This should be used with all episodes of sleep. Compliance should be reviewed within 31-90 days of starting therapy for usage greater than 4 hours per night greater than 70% of the nights. The patient should be asked about symptoms such as excessive daytime sleepiness, quality of sleep, decreased nocturia, increased mental functioning such as memory, mood, and concentration. The patient had an increased number of periodic limb movements during this split night study. The baseline PLM index was 19.5, and during treatment this increased to 31.9. The periodic limb movement arousal index was not elevated, 10.4 on the baseline and 7.8 during treatment. Clinical correlation is recommended. She did not have complaints of uncomfortable feelings in her legs at night, occasionally has kicking during the night. With her PLM index increasing with CPAP titration, this may represent CPAP kick and is expected to resolve during continue use of CPAP. Data The data obtained during this sleep study is adequate for interpretation. Certification This sleep study has been reviewed by a board certified sleep medicine physician.
[2025-07-28 19:15] VITALS: BMI 29.8
== END 2025-07-20 06:04 | disposition home or self-care (01) ==
LOC: ANHCSM 10:14
PROVIDERS: PCP Family Medicine; Visit Provider Family Medicine
DX: G47.9 Sleep disorder, unspecified (principal); G47.33 Obstructive sleep apnea (adult) (pediatric)
CPT/HCPCS: 95811

== ENCOUNTER 2025-07-26 10:19 | Outpatient (CLI) | payer BC, SELFPAY ==
--- NOTE | ~2025-07-26 | DEXA_ITS ---
Bone Density Report Name: DAVID BROUSSARD Age: 64 Sex: Female Ethnicity: White Date of : 1960 Indication: postmenopausal; screening for osteoporosis; height loss; Referring Provider: MAURO STINSON Study: Bone densitometry was performed. Exam Date: July 26, 2025 Accession number: [id number] Bone Density: Region BMD T-score Z-score Classification AP Spine(L1-L4) 0.856 -1.7 0.2 Osteopenia Femoral Neck (Left) 0.625 -2.0 -0.4 Osteopenia Total Hip (Left) 0.870 -0.6 0.7 Normal Femoral Neck (Right) 0.611 -2.1 -0.5 Osteopenia Total Hip (Right) 0.810 -1.1 0.2 Osteopenia Total Hip Mean 0.840 -0.9 0.5 Normal World Health Organization criteria for BMD impression classify patients as: Normal (T-score at or above -1.0), Osteopenia (T-score between -1.0 and -2.5), or Osteoporosis (T-score at or below -2.5). 10-year Fracture Risk(1): Major Osteoporotic Fracture 11% Hip Fracture 1.9% Reported Risk Factors: [place] (), Neck BMD=0.611, BMI=31.1 (1) FRAX(R) Version 3.08. Fracture probability calculated for an untreated patient. Fracture probability may be lower if the patient has received treatment. Clinical Information Provided by Patient: Has used the following medications: Vitamin D Patient maximum height was 66 Menopause Age: 48 No regular weight bearing exercise Drinks caffeinated beverages Onset of menses at age 9 Number of children 1 Impression: The patient has low bone mass, based on the Right Femoral Neck T-score. The patient has an estimated ten-year risk of hip fracture of 1.9% and an estimated ten-year risk of major fracture of 11%, based on the WHO FRAX algorithm. Discussion: BONE DENSITY IS LOW AT ONE OR MORE SKELETAL SITES. This patient's lowest T-score is low at one or more skeletal sites. It meets the World Health Organization's (WHO) criteria for ?low bone mass? (T-score between -1.0 and -2.5). The patient's 10-year risk of fracture as calculated by FRAX is less than the threshold where pharmacological therapy is recommended by the National Osteoporosis Foundation (NOF). However, all treatment decisions require clinical judgment and consideration of individual patient factors, including patient preferences, comorbidities, previous drug use, risk factors not captured in the FRAX model (e.g., frailty, falls, vitamin D deficiency, increased bone turnover, interval significant decline in bone density) and possible under or overestimation of fracture risk by FRAX. The patient should follow a healthful lifestyle (good nutrition with adequate calcium and vitamin D, and appropriate weight-bearing exercise). Follow-Up: Consider repeating this study in 2 to 3 years to reassess this patient's status, or sooner if there is some new clinical indication. Reported by: RIKKI on 07/26/2025 11:16:00 AM. Reviewed, dictated and finalized at location A.
== END 2025-07-26 10:20 | disposition home or self-care (01) ==
LOC: MICIMG 10:19
PROVIDERS: PCP Family Medicine; Visit Provider Student in an Organized Health Care Education/Training Program
DX: Z78.0 Asymptomatic menopausal state (principal); M85.88 Other specified disorders of bone density and structure, other site; M85.852 Other specified disorders of bone density and structure, left thigh; M85.851 Other specified disorders of bone density and structure, right thigh
CPT/HCPCS: 77080